=== PATIENT | female | born 1975 | race Caucasian/White ===

== ENCOUNTER 2021-03-08 22:12 | Inpatient (IN) | payer SELFPAY ==
[2021-03-08 22:39] VITALS: BMI 21.8
[2021-03-08] MEDS ORDERED: Ondansetron ODT 4 MG TAB PO PRN ×2 (22:49→22:59)
[2021-03-08] MEDS ORDERED: Acetaminophen 325 MG TAB PO PRN (22:49)
[2021-03-08] MEDS ORDERED: Ondansetron PF 4 MG/2 ML Vial IVP PRN (22:49)
[2021-03-08] MEDS ORDERED: Acetaminophen 650 MG Suppository PR PRN (22:49)
[2021-03-08] MEDS ORDERED: Lorazepam 1 MG TAB PO PRN (22:59)
[2021-03-08] MEDS ORDERED: Lorazepam 2 MG/ML VIAL IM PRN (22:59)
[2021-03-08] MEDS ORDERED: Electrolyte Replacement Protocol 1 EACH FS SCH (23:00)
[2021-03-08 23:24] LABS: Anion Gap 16 mmol/L (10-20); BUN (Urea Nitrogen) Less than 4 mg/dL (7.0-18.7); Calc. Creatinine Clearance 98 mL/min (70-130); Calcium 9.3 mg/dL (7.8-10.44); Carbon Dioxide 27 mmol/L (22-29); Chloride 80 mmol/L (98-107); Glucose 81 mg/dL (70-105); Sodium 120 mmol/L (136-145)
[2021-03-08 23:27] LABS: ALT (SGPT) 52 U/L (8-55); AST (SGOT) 107 U/L (5-34); Albumin 3.8 g/dL (3.5-5.0); Alkaline Phosphatase 112 U/L (40-110); Bilirubin, Direct 0.8 mg/dL (0.1-0.3); Bilirubin, Total 1.4 mg/dL (0.2-1.2); Magnesium 1.2 mg/dL (1.6-2.6); Protein, Total 7.1 g/dL (6.0-8.3)
[2021-03-08] MEDS ORDERED: Potassium Chloride 20 MEQ in Premix Bag 1 BAG IVPB SCH (23:45)
[2021-03-08] MEDS ORDERED: Magnesium Sulfate 4 GM in Sodium Chloride 0.9% 250 ML 250 ML IVPB SCH (23:45)
[2021-03-08] MEDS ORDERED: Magnesium 2 GM/50 ML 2 GM in Premix Bag 1 BAG IVPB SCH (23:45)
[2021-03-09] MEDS: HYDROcodone/Acetaminophen 5/325 mg Tablet PO PRN ×5 (00:07→22:37)
[2021-03-09 01:49] LABS: Phosphorus 2.3 mg/dL (2.3-4.7)
[2021-03-09] MEDS ORDERED: Pantoprazole 40 MG VIAL IVP SCH (02:00)
[2021-03-09] MEDS ORDERED: Sodium Chloride 0.9% 1,000 ML IV SCH (02:00)
[2021-03-09 02:16] LABS: #Basophils 0.1 thou/uL (0.0-0.2); #Lymphocytes 2.6 thou/uL (1.20-3.40); #Monocytes 0.7 thou/uL (0.11-0.59); %Basophils 1.1 % (0.0-1.0); %Eosinophils 0.5 % (0.0-10.0); %Lymphocytes 35.4 % (21.0-51.0); %Monocytes 9.2 % (0.0-10.0); %Neutrophils 53.9 % (42.0-75.0); Mean Corpuscular HGB CONC 36.4 g/dL (32.0-36.0); Mean Corpuscular Hemoglobin 36.2 pg (27.0-31.0); Mean Corpuscular Volume 99.4 fL (78.0-98.0); Mean Platelet Volume 6.2 fL (7.4-10.4); Platelet Count 222 thou/uL (130-400); RBC Distribution Width 12.7 % (11.5-14.5); Red Blood Cell (RBC) Count 3.33 mill/uL (4.20-5.40); White Blood Cell (WBC) Count 7.3 thou/uL (4.8-10.8)
[2021-03-09] MEDS: Potassium Chloride 20 MEQ TAB PO SCH ×2 (02:20→02:24)
[2021-03-09] MEDS ORDERED: Magnesium Sulfate 4 GM in Sodium Chloride 0.9% 250 ML 250 ML IVPB SCH (02:30)
[2021-03-09 02:53] LABS: Anion Gap 19 mmol/L (10-20); BUN (Urea Nitrogen) 4 mg/dL (7.0-18.7); Calc. Creatinine Clearance 98 mL/min (70-130); Calcium 9.2 mg/dL (7.8-10.44); Carbon Dioxide 20 mmol/L (22-29); Chloride 84 mmol/L (98-107); Glucose 77 mg/dL (70-105); Potassium 3.6 mmol/L (3.5-5.1)
[2021-03-09 02:55] LABS: Sodium 119 mmol/L (136-145)
[2021-03-09] MEDS ORDERED: Potassium Chloride 20 MEQ in Premix Bag 1 BAG IVPB SCH (04:00)
[2021-03-09] MEDS: Lorazepam 1 MG TAB PO SCH ×2 (05:01)
[2021-03-09 07:42] LABS: #Lymphocytes 2.3 thou/uL (1.20-3.40); #Monocytes 0.6 thou/uL (0.11-0.59); #Neutrophils 4.8 thou/uL (1.40-6.50); %Basophils 0.3 % (0.0-1.0); %Eosinophils 0.5 % (0.0-10.0); %Lymphocytes 29.2 % (21.0-51.0); %Monocytes 8.2 % (0.0-10.0); %Neutrophils 61.9 % (42.0-75.0); Hemoglobin 12.5 g/dL (12.0-16.0); Mean Corpuscular HGB CONC 36.1 g/dL (32.0-36.0); Mean Corpuscular Hemoglobin 35.8 pg (27.0-31.0); Mean Corpuscular Volume 99.3 fL (78.0-98.0); Mean Platelet Volume 6.1 fL (7.4-10.4); Platelet Count 227 thou/uL (130-400); RBC Distribution Width 12.6 % (11.5-14.5); Red Blood Cell (RBC) Count 3.49 mill/uL (4.20-5.40); White Blood Cell (WBC) Count 7.8 thou/uL (4.8-10.8)
[2021-03-09 08:02] LABS: Anion Gap 14 mmol/L (10-20); BUN (Urea Nitrogen) 4 mg/dL (7.0-18.7); Calc. Creatinine Clearance 97 mL/min (70-130); Calcium 9.2 mg/dL (7.8-10.44); Carbon Dioxide 25 mmol/L (22-29); Chloride 87 mmol/L (98-107); Glucose 93 mg/dL (70-105); Sodium 122 mmol/L (136-145)
[2021-03-09] MEDS: Folic Acid 1 MG TAB PO SCH (08:30)
[2021-03-09] MEDS: Multivit, Therapeutic 1 TAB PO SCH (08:30)
[2021-03-09] MEDS: Enoxaparin Sodium 40 MG/0.4 ML SYRINGE SC SCH (08:30)
[2021-03-09] MEDS: Pantoprazole 40 MG VIAL IVP SCH (10:39)
[2021-03-09] MEDS ORDERED: diphenhydrAMINE 25 MG CAP PO SCH (16:30)
[2021-03-09 16:52] LABS: Anion Gap 15 mmol/L (10-20); BUN (Urea Nitrogen) 5 mg/dL (7.0-18.7); Calc. Creatinine Clearance 90 mL/min (70-130); Calcium 8.8 mg/dL (7.8-10.44); Carbon Dioxide 20 mmol/L (22-29); Chloride 88 mmol/L (98-107); Glucose 134 mg/dL (70-105); Potassium 4.2 mmol/L (3.5-5.1)
[2021-03-09 16:57] LABS: Sodium 119 mmol/L (136-145)
[2021-03-09] MEDS ORDERED: Sodium Chloride 256 MEQ in Sterile Water Injection 936 ML IV SCH (18:00)
[2021-03-09] MEDS: Lorazepam 0.5 MG TAB PO PRN (20:21)
[2021-03-09] MEDS ORDERED: Thiamine HCl 200 MG/2 ML VIAL SLOW IVP SCH (21:00)
[2021-03-09] MEDS ORDERED: Lorazepam 1 MG TAB PO PRN (22:59)
[2021-03-10 05:17] LABS: #Lymphocytes 1.6 thou/uL (1.20-3.40); #Monocytes 0.5 thou/uL (0.11-0.59); %Basophils 0.6 % (0.0-1.0); %Eosinophils 0.3 % (0.0-10.0); %Lymphocytes 31.1 % (21.0-51.0); %Monocytes 8.9 % (0.0-10.0); %Neutrophils 59.1 % (42.0-75.0); Hemoglobin 11.4 g/dL (12.0-16.0); Mean Corpuscular Hemoglobin 35.4 pg (27.0-31.0); Mean Platelet Volume 6.3 fL (7.4-10.4); Platelet Count 207 thou/uL (130-400); RBC Distribution Width 12.9 % (11.5-14.5); Red Blood Cell (RBC) Count 3.21 mill/uL (4.20-5.40); White Blood Cell (WBC) Count 5.1 thou/uL (4.8-10.8)
[2021-03-10 05:32] LABS: Anion Gap 10 mmol/L (10-20); BUN (Urea Nitrogen) Less than 4 mg/dL (7.0-18.7); Calc. Creatinine Clearance 108 mL/min (70-130); Calcium 8.9 mg/dL (7.8-10.44); Carbon Dioxide 30 mmol/L (22-29); Chloride 94 mmol/L (98-107); Glucose 101 mg/dL (70-105); Potassium 3.2 mmol/L (3.5-5.1); Sodium 131 mmol/L (136-145)
[2021-03-10] MEDS: Pantoprazole 40 MG VIAL IVP SCH (08:50)
[2021-03-10] MEDS: Multivit, Therapeutic 1 TAB PO SCH (08:51)
[2021-03-10] MEDS: Folic Acid 1 MG TAB PO SCH (08:51)
[2021-03-10] MEDS: Enoxaparin Sodium 40 MG/0.4 ML SYRINGE SC SCH (08:51)
[2021-03-10] MEDS: HYDROcodone/Acetaminophen 5/325 mg Tablet PO PRN ×2 (08:57→17:20)
[2021-03-10] MEDS ORDERED: clonazePAM 0.5 MG TAB PO PRN (12:28)
[2021-03-10] MEDS ORDERED: hydrALAZINE 20 MG/ML VIAL SLOW IVP SCH (13:30)
[2021-03-10] MEDS: Lorazepam 0.5 MG TAB PO PRN (14:18)
[2021-03-10 16:21] VITALS: TEMP 97.5
[2021-03-10] MEDS ORDERED: Metoprolol Tartrate 50 MG TAB PO SCH ×2 (17:00→21:00)
[2021-03-10 17:32] VITALS: BP 170/84
[2021-03-10] MEDS ORDERED: Lorazepam 1 MG TAB PO PRN (22:59)
[2021-03-10] MEDS ORDERED: Lorazepam 0.5 MG TAB PO SCH (23:00)
[2021-03-11] MEDS ORDERED: Sucralfate 1 GM TAB PO SCH (09:00)
[2021-03-11] MEDS ORDERED: Cyanocobalamin (Vitamin B-12) 1,000 MCG TAB PO SCH (09:00)
[2021-03-11] MEDS ORDERED: Thiamine 100 MG TAB PO SCH (21:00)
[2021-03-11] MEDS ORDERED: Lorazepam 0.5 MG TAB PO PRN (22:59)
== END 2021-03-10 17:40 | disposition home or self-care (01) | DRG 640 ==
LOC: 2NO 22:12
PROVIDERS: ADMIT Student in an Organized Health Care Education/Training Program; ATTEND Hospitalist
DX: E87.1 Hypo-osmolality and hyponatremia (principal); K85.20 Alcohol induced acute pancreatitis without necrosis or infection; G61.0 Guillain-Barre syndrome; F41.9 Anxiety disorder, unspecified; F10.20 Alcohol dependence, uncomplicated; E87.6 Hypokalemia; E83.42 Hypomagnesemia; K70.10 Alcoholic hepatitis without ascites; E86.9 Volume depletion, unspecified; N28.89 Other specified disorders of kidney and ureter; R74.01 Elevation of levels of liver transaminase levels; Z88.1 Allergy status to other antibiotic agents; Z88.2 Allergy status to sulfonamides; Z88.8 Allergy status to other drugs, medicaments and biological substances; Z79.899 Other long term (current) drug therapy; Z90.49 Acquired absence of other specified parts of digestive tract
CPT/HCPCS: 36415; 74177; 76770; 80048; 83735; 83880; 84100; 84443; 85025; A4217; C9113; J0360; J1650; J3411; J3475; J3480; J7050